=== PATIENT | male | born 1960 | race Caucasian/White ===

== ENCOUNTER 2016-08-09 03:25 | Emergency (ER) | payer OTHER ==
[~2016-08-09] VITALS: Ht 177.8 cm; Wt 100.0 kg
[2016-08-09 03:28] VITALS: TEMP 97.8
[2016-08-09 04:05] LABS: BASO # 0.1 (0.0-0.2); BASO % 0.3 % (0.0-2.0); EOS % 0.2 % (0-4.0); GRAN # 11.7 (1.4-6.5); GRAN % 81.2 % (42.2-75.2); HEMATOCRIT 41.6 % (42.0-52.0); LYMPH # 1.4 (1.2-3.4); LYMPH % 9.9 % (20.0-51.0); MEAN CELL VOLUME 91 fl (80.0-100.0); MEAN CORPUSCULAR HEMOGLOBIN 31 pg (27.0-31.0); MEAN CORPUSCULAR HGB CONC 34 g/dl (33.0-37.0); MEAN PLATELET VOLUME 10.5 fl (7.4-10.4); MONO # 1.1 (0.1-0.6); MONO % 7.9 % (1.7-9.3); PLATELET COUNT 229 K/mm3 (130-400); RED BLOOD COUNT 4.58 M/mm3 (4.20-5.60); REDCELL DISTRIBUTION WIDTH-CV 13.2 % (11.5-14.5); WHITE BLOOD COUNT 14.4 K/mm3 (4.8-10.8)
[2016-08-09 04:24] LABS: ADJUSTED CALCIUM 8.8 mg/dL (8.4-10.2); ALBUMIN 4.1 gm/dL (3.5-5.0); CALCIUM 8.9 mg/dL (8.4-10.2); CREATININE, serum 1.42 mg/dL (0.66-1.25); TOTAL PROTEIN 7.1 gm/dL (6.4-8.2)
[2016-08-09 05:12] LABS: PH 5 (5-8); SQUAMOUS EPITHELIAL None Seen /hpf; URINE APPEARANCE Clear; URINE BACTERIA None Seen /hpf; URINE BILIRUBIN Negative (NEGATIVE); URINE BLOOD 1+ (NEGATIVE); URINE COLOR Yellow; URINE GLUCOSE Negative (NEGATIVE); URINE KETONE Negative (NEGATIVE); URINE RBC 0-2 /hpf; URINE UROBILINOGEN Negative (NEGATIVE); URINE WBC 0-2 /hpf
[2016-08-09] MEDS ORDERED: ZOFRAN ODT4 MG PO (07:09)
[2016-08-09] MEDS ORDERED: PERCOCET 325 MG1 TA2 PO (07:09)
[2016-08-09] MEDS ORDERED: OMNICEF 300MG300 MG PO (07:09)
[2016-08-09 07:37] VITALS: BP 143/76; PULSE 67
[2016-08-10] MEDS ORDERED: FLOMAX 0.40.4 MG/CAP PO (12:52)
== END 2016-08-09 07:41 | disposition home or self-care (01) ==
LOC: COL.ER 03:25
PROVIDERS: Emergency Medicine
DX: N20.1 Calculus of ureter (principal); Z87.442 Personal history of urinary calculi; R10.31 Right lower quadrant pain; I45.10 Unspecified right bundle-branch block
CPT/HCPCS: J0696; J1170; J2405; J7030

== ENCOUNTER 2016-08-10 12:17 | Observation (INO) | payer OTHER ==
[2016-08-10] VITALS (9 sets, daily range): BP systolic 124–155; BP diastolic 32–77; PULSE 73–90; TEMP 98.5–99
[~2016-08-10] VITALS: Ht 177.8 cm; Wt 100.7 kg
[~2016-08-10 12:17] MED LIST: OMNICEF 300MG300 MG PO; PERCOCET 325 MG1 TA2 PO; ZOFRAN ODT4 MG PO
[2016-08-10] MEDS ORDERED: FLOMAX 0.40.4 MG/CAP PO (12:52)
== END 2016-08-10 23:15 | disposition home or self-care (01) ==
LOC: SURG 12:24
DX: N20.1 Calculus of ureter (principal)
CPT/HCPCS: C1769; C1894; C2617; G0378; J0690; J1100; J1885; J2405; J2704; J2765; J3010; J7030; Q9967